=== PATIENT | male | born 1965 | race Caucasian/White ===

== ENCOUNTER 2021-02-19 10:40 | Emergency (ER) | payer OTHER, SELFPAY ==
[2021-02-19 11:15] LABS: Basophils % 1.4 % (0-1.3); Hematocrit 43.7 % (39.6-49.0); Lymphocytes % 25.2 % (15.3-44.8); MPV 7.7 fL (7.6-11.3); RBC Red Blood Cell Count 5.12 M/uL (4.33-5.43)
[2021-02-19 11:21] LABS: Protime INR 1.03
[2021-02-19 11:33] LABS: ALT/SGPT 45 U/L (12-78); AST/SGOT 22 U/L (15-37); Albumin 3.7 g/dL (3.4-5.0); Alkaline Phosphatase 70 U/L (45-117); BUN Blood Urea Nitrogen 14 mg/dL (7-18); Bicarbonate 29 mmol/L (21-32); Bilirubin Direct 0.1 mg/dL (0-0.2); Bilirubin Total 0.5 mg/dL (0.2-1.0); Glucose Level 88 mg/dL (74-106); Protein, Total 7.6 g/dL (6.4-8.2); Sodium Level 139 mmol/L (136-145)
[2021-02-19 11:34] LABS: CKMB Creatine Kinase MB 2.7 ng/mL (1.0-3.6); Creatine Phosphokinase 139 U/L (39-308); Lipase 108 U/L (73-393); Magnesium 2.1 mg/dL (1.8-2.4); Troponin (Emerg Dept Use Only) < 0.02 ng/mL (0.0-0.045)
[2021-02-19 13:46] LABS: Urine Blood Trace-intact (Negative); Urine Glucose Negative (Negative); Urine Protein Negative (Negative)
--- NOTE | 2021-02-19 13:49 | EDPHYS ---
Physician Documentation [facility] Name: Carlin Mckeon Age: 55 yrs Sex: Male : 1965 Arrival Date: 02/19/2021 Time: 10:43 Bed 7 Private MD: Earl Magana ED Physician Delia Torres HPI: 02/19 13:52 This 55 yrs old Male presents to ER via Ambulatory with complaints of High kb Blood Pressure, Weakness, Passed out yesterday. 13:52 The patient has experienced near-syncope, almost passed out. Onset: The kb symptoms/episode began/occurred yesterday. Duration: This was a single episode. Context: the episode(s) was witnessed, by no one, occurred at a parking lot, occurred while the patient was standing, Just prior to the episode the patient experienced no apparent symptoms. Associated injury: The patient did not suffer any apparent associated injury. Associated signs and symptoms: Pertinent positives: dizziness, near syncope, high blood pressure. Current symptoms: Currently, the patient is not experiencing any symptoms, the patient feels back to baseline, no decreased level of consciousness, no confusion, no dysphasia, no headache, no paralysis, no visual changes. The patient has experienced similar episodes in the past, several times, and the symptoms today are exactly the same. The patient has been recently seen by a physician:. Pt reports several episodes of near syncope and dizziness over the past few months. States he was seen by PCP for this, had CT scan and was taken off of a blood pressure medication that they thought was causing it. States he didn't have symptoms for a couple of weeks after stopping the medication, but had an episode yesterday when he walked up to his truck. States he didn't fall. he caught himself on the truck. Reports he looked at his new prescription bottle and noticed that he had taken the bp med that he was reacting to before. Historical: - Allergies: 11:01 Morphine (Anaphylaxis); ss 11:01 Seroquel; rapid heart rate; ss - Home Meds: 11:01 olmesartan 20 mg oral tab 1 tab once daily [Active]; ss - PMHx: 11:01 Hypertension; ss - PSHx: 11:01 hernia repair; ss - Immunization history:: Client reports receiving the 2nd dose of the Covid vaccine. - Social history:: Smoking status: Patient reports the use of cigarette tobacco products, smokes two packs cigarettes per day. ROS: 13:51 Constitutional: Negative for fever, chills, and weight loss. kb 13:51 Neuro: Positive for dizziness, near syncope. 13:51 All other systems are negative. Exam: 13:51 Constitutional: This is a well developed, well nourished patient who is awake, alert, kb and in no acute distress. Head/Face: Normocephalic, atraumatic. Eyes: Pupils equal round and reactive to light, extra-ocular motions intact. Lids and lashes normal. Conjunctiva and sclera are non-icteric and not injected. Cornea within normal limits. Periorbital areas with no swelling, redness, or edema. ENT: Moist Mucous membranes Cardiovascular: Regular rate and rhythm with a normal S1 and S2. No gallops, murmurs, or rubs. No pulse deficits. Respiratory: Respirations even and unlabored. No increased work of breathing, no retractions or nasal flaring. Abdomen/GI: Soft, non-tender. No distention Skin: Warm, dry with normal turgor. Normal color. MS/ Extremity: Pulses equal, no cyanosis. Neurovascular intact. Full, normal range of motion. Neuro: Awake and alert, GCS 15, oriented to person, place, time, and situation. Moves all extremities. Normal gait. Psych: Awake, alert, with orientation to person, place and time. Behavior, mood, and affect are within normal limits. Vital Signs: 10:54 BP 153 / 101; Pulse 84; Resp 18; Temp 98.1(TE); Pulse Ox 99% on R/A; Weight 101.6 kg; ss Height 5 ft. 11 in. (180.34 cm); Pain 0/10; 11:06 BP 142 / 109 Sitting; Pulse 78; Resp 15; Pulse Ox 98% on R/A; jl7 11:07 BP 142 / 99 Supine; Pulse 79; jl7 11:09 BP 121 / 103 Standing; Pulse 77; jl7 11:30 BP 126 / 98; Pulse 75; Resp 15; Pulse Ox 98% ; jl7 12:00 BP 134 / 96; Pulse 65; Resp 15; Pulse Ox 98% ; jl7 12:30 BP 134 / 86; Pulse 65; Resp 15; Pulse Ox 100% ; jl7 13:18 BP 114 / 88; Pulse 63; ss 10:54 Body Mass Index 31.24 (101.60 kg, 180.34 cm) ss NIH Stroke Scale Scores: 11:05 NIHSS Score: 0 jl7 MDM: 11:00 Patient medically screened. kb 13:50 Data reviewed: vital signs, nurses notes. Data reviewed: old medical records, CT brain kb from last month reviewed. Data interpreted: Pulse oximetry: on room air is 98 %. Interpretation: normal. Counseling: I had a detailed discussion with the patient and/or guardian regarding: the historical points, exam findings, and any diagnostic results supporting the discharge/admit diagnosis, lab results, radiology results, the need for outpatient follow up, a family practitioner, to return to the emergency department if symptoms worsen or persist or if there are any questions or concerns that arise at home. 02/19 11:00 Order name: Basic Metabolic Panel; Complete Time: 11:37 kb 02/19 11:00 Order name: CBC with Diff; Complete Time: 11:18 kb 02/19 11:00 Order name: CPK; Complete Time: 11:37 kb 02/19 11:00 Order name: Ckmb; Complete Time: 11:37 kb 02/19 11:00 Order name: Hepatic Function; Complete Time: 11:37 kb 02/19 11:00 Order name: Lipase; Complete Time: 11:37 kb 02/19 11:00 Order name: Magnesium; Complete Time: 11:37 kb 02/19 11:00 Order name: Protime (+inr); Complete Time: 11:37 kb 02/19 11:00 Order name: Ptt, Activated; Complete Time: 11:37 kb 02/19 11:00 Order name: Troponin (emerg Dept Use Only); Complete Time: 11:37 kb 02/19 11:00 Order name: EKG; Complete Time: 11:01 kb 02/19 11:00 Order name: Cardiac monitoring; Complete Time: 11:14 kb 02/19 11:00 Order name: EKG - Nurse/Tech; Complete Time: 11:14 kb 02/19 13:46 Order name: Urine Dipstick-Ancillary; Complete Time: 13:49 EDMS 02/19 11:00 Order name: IV Saline Lock; Complete Time: 11:14 kb 02/19 11:00 Order name: Labs collected and sent; Complete Time: 11:14 kb 02/19 11:00 Order name: NPO; Complete Time: 11:19 kb 02/19 11:00 Order name: O2 Per Protocol; Complete Time: 12:05 kb 02/19 11:00 Order name: O2 Sat Monitoring; Complete Time: 12:05 kb 02/19 11:00 Order name: Urine Dipstick-Ancillary (obtain specimen); Complete Time: 14:01 kb 02/19 11:00 Order name: Orthostatics; Complete Time: 11:14 kb Administered Medications: No medications were administered Disposition Summary: 02/19/21 13:48 Discharge Ordered Location: Home kb Condition: Stable kb Diagnosis - Syncope Near kb - Dizziness and giddiness kb Followup: kb - With: Emergency Department - When: As needed - Reason: Worsening of condition Followup: kb - With: Private Physician - When: 2 - 3 days - Reason: Recheck today's complaints, Continuance of care, Re-evaluation by your physician Discharge Instructions: - Discharge Summary Sheet kb - Near-Syncope, [id number] kb - Dizziness, Koaq-ge-[id number] kb Forms: - Medication Reconciliation Form kb - Thank You Letter kb - Antibiotic Education kb - Prescription Opioid Use kb NIH Stroke Scale - NIH Stroke Score Date: 02/19/2021 Time: 11:05 Total Score = 0 1a. Level of Consciousness (LOC) - 0(Alert) 1b. Level of Consciousness (LOC) (Month \T\ Age) - 0(Both) 1c. LOC Commands (Open \T\ Closes Eyes/Center Maker Hand) - 0(Both) 2. Best Gaze (Lateral Gaze Paresis) - 0(Normal) 3. Visual Field Loss - 0(No visual loss) 4. Facial Palsy - 0(Normal) 5a. Left Arm: Motor (10-second hold) - 0(No drift) 5b. Right Arm: Motor (10-second hold) - 0(No drift) 6a. Left Leg: Motor (5-second hold - always test supine) - 0(No drift) 6b. Right Leg: Motor (5-second hold - always test supine) - 0(No drift) 7. Limb Ataxia (finger/nose \T\ heel/padilla - test with eyes open) - 0(Absent) 8. Sensory Loss (pinprick arms/legs/face) - 0(Normal) 9. Best Language: Aphasia (description/naming/reading) - 0(No aphasia) 10. Dysarthria (speech clarity - read or repeat words) - 0(Normal) 11. Extinction and Inattention (visual/tactile/auditory/spatial/personal) - 0(No abnormality) Initials: jl7 Addendum: 02/23/2021 06:39 Co-signature as Attending Physician, Delia Torres MD. ma2 Signatures: Dispatcher [employer] Aixa Atkins, BORDER GUARD-C BORDER GUARD-Anayeli Woodall RN RN ss Alzahri, Mohammad, MD MD ma2 Corrections: (The following items were deleted from the chart) 02/19 11:02 11:01 PMHx: Hernia; ss ss
--- NOTE | 2021-02-19 13:49 | ER ---
Nurse's Notes [facility] Name: Carlin Mckeon Age: 55 yrs Sex: Male : 1965 Arrival Date: 02/19/2021 Time: 10:43 Bed 7 Private MD: Earl Magana Diagnosis: Syncope Near;Dizziness and giddiness Presentation: 02/19 10:54 Chief complaint: Patient states: Near syncopal episode that occurred out of the blue ss yesterday. Pt states last time this happened he believed he was having an adverse reaction to his blood pressure medication, Olmesartan. Pt didn't realize that his doctor, weeks ago switched his BP medication back to Olmesartan. Pt states that his BP was elevated this morning and he had a headache so he took two doses of his BP medication as well as his 's BP medication, Metoprolol 100 mg. Coronavirus screen: Client denies travel out of the [place] in the last 14 days. Ebola Screen: Patient denies exposure to infectious person. Patient denies travel to an Ebola-affected area in the 21 days before illness onset. 10:54 Method Of Arrival: Ambulatory ss 10:58 Initial Sepsis Screen: Does the patient meet any 2 criteria? No. Patient's initial ss sepsis screen is negative. Does the patient have a suspected source of infection? No. Patient's initial sepsis screen is negative. Risk Assessment: Do you want to hurt yourself or someone else? Patient reports no desire to harm self or others. Onset of symptoms was February 18, 2021. 10:58 Acuity: FRANCISCA 3 ss Historical: - Allergies: 11:01 Morphine (Anaphylaxis); ss 11:01 Seroquel; rapid heart rate; ss - Home Meds: 11:01 olmesartan 20 mg oral tab 1 tab once daily [Active]; ss - PMHx: 11:01 Hypertension; ss - PSHx: 11:01 hernia repair; ss - Immunization history:: Client reports receiving the 2nd dose of the Covid vaccine. - Social history:: Smoking status: Patient reports the use of cigarette tobacco products, smokes two packs cigarettes per day. Screenin:05 Abuse screen: Denies threats or abuse. Denies injuries from another. Nutritional jl7 screening: No deficits noted. Tuberculosis screening: No symptoms or risk factors identified. Fall Risk IV access (20 points). Total Fajardo Fall Scale indicates No Risk (0-24 pts). Assessment: 11:05 General: Appears in no apparent distress. uncomfortable, Behavior is cooperative, jl7 anxious. Pain: Complains of pain in SCHNEIDER Quality of pain is described as throbbing. Neuro: Level of Consciousness is awake, alert, obeys commands, Oriented to person, place, time, situation, Moves all extremities. Full function Gait is steady, Speech is normal, Facial symmetry appears normal. Cardiovascular: Denies chest pain, Patient's skin is warm and dry. Respiratory: Airway is patent Respiratory effort is even, unlabored, Respiratory pattern is regular, symmetrical, Denies shortness of breath. : Reports Difficulty with urination x 2 months. Derm: Skin is pink, warm \T\ dry. Vital Signs: 10:54 BP 153 / 101; Pulse 84; Resp 18; Temp 98.1(TE); Pulse Ox 99% on R/A; Weight 101.6 kg; ss Height 5 ft. 11 in. (180.34 cm); Pain 0/10; 11:06 BP 142 / 109 Sitting; Pulse 78; Resp 15; Pulse Ox 98% on R/A; jl7 11:07 BP 142 / 99 Supine; Pulse 79; jl7 11:09 BP 121 / 103 Standing; Pulse 77; jl7 11:30 BP 126 / 98; Pulse 75; Resp 15; Pulse Ox 98% ; jl7 12:00 BP 134 / 96; Pulse 65; Resp 15; Pulse Ox 98% ; jl7 12:30 BP 134 / 86; Pulse 65; Resp 15; Pulse Ox 100% ; jl7 13:18 BP 114 / 88; Pulse 63; ss 10:54 Body Mass Index 31.24 (101.60 kg, 180.34 cm) NIH Stroke Scale Scores: 11:05 NIHSS Score: 0 jl7 ED Course: 10:43 Patient arrived in ED. mr 10:43 Earl Magana is Private Physician. mr 11:00 [facility]al [facility]C [facility] kb 11:00 Delia Torres MD is Attending Physician. kb 11:01 Triage completed. ss 11:01 Arm band placed on right wrist. ss 11:05 Kevin Turk RN is Primary Nurse. jl7 11:05 Patient has correct armband on for positive identification. Placed in gown. Bed in low jl7 position. Call light in reach. Side rails up X 1. potline monitor on. Pulse ox on. NIBP on. 11:05 EKG done, by ED staff, reviewed by Aixa CHOWDHURY. 7 11:10 Initial lab(s) drawn, by ut, sent to lab. Inserted saline lock: 20 gauge in right kj1 antecubital area, using aseptic technique. Blood collected. 13:30 Urine collected: clean catch specimen, clear. jl7 14:05 No provider procedures requiring assistance completed. IV discontinued, intact, jl7 bleeding controlled, No redness/swelling at site. Pressure dressing applied. Administered Medications: No medications were administered Outcome: 13:48 Discharge ordered by . frederic 14:05 Discharged to home ambulatory. jl7 14:05 Condition: stable 14:05 Discharge instructions given to patient, Instructed on discharge instructions, follow up and referral plans. Demonstrated understanding of instructions, follow-up care. 14:05 Patient left the ED. jl7 NIH Stroke Scale - NIH Stroke Score Date: 02/19/2021 Time: 11:05 Total Score = 0 1a. Level of Consciousness (LOC) - 0(Alert) 1b. Level of Consciousness (LOC) (Month \T\ Age) - 0(Both) 1c. LOC Commands (Open \T\ Closes Eyes/Glass Cut Off Supervisor) - 0(Both) 2. Best Gaze (Lateral Gaze Paresis) - 0(Normal) 3. Visual Field Loss - 0(No visual loss) 4. Facial Palsy - 0(Normal) 5a. Left Arm: Motor (10-second hold) - 0(No drift) 5b. Right Arm: Motor (10-second hold) - 0(No drift) 6a. Left Leg: Motor (5-second hold - always test supine) - 0(No drift) 6b. Right Leg: Motor (5-second hold - always test supine) - 0(No drift) 7. Limb Ataxia (finger/nose \T\ heel/padilla - test with eyes open) - 0(Absent) 8. Sensory Loss (pinprick arms/legs/face) - 0(Normal) 9. Best Language: Aphasia (description/naming/reading) - 0(No aphasia) 10. Dysarthria (speech clarity - read or repeat words) - 0(Normal) 11. Extinction and Inattention (visual/tactile/auditory/spatial/personal) - 0(No abnormality) Initials: dawn7 Signatures: Aixa Grewal, LUCIANA FISHER-Re [place]awnee mr Anayeli Kruger, RN RN ss Kevin Turk RN RN jl7 Kavita Grewal kj1 Corrections: (The following items were deleted from the chart) 11:02 11:01 PMHx: Hernia; ss ss
[2021-02-19 14:28] VITALS: TEMP 98.1
[2021-02-19 14:37] VITALS: O2SAT 100
[2021-02-19 14:38] VITALS: BP 114/88
--- NOTE | 2021-02-20 20:40 | EKG ---
Test Date: 2021-02-19 Test Time: 10:58:04 Assistant Women'S Tennis Coach: LESIA MEASUREMENT RESULTS: Intervals: Rate: 79 OH: 176 QRSD: 92 QT: 376 QTc: 431 [place]: P: 78 OH: 176 QRS: 26 T: 59 INTERPRETIVE STATEMENTS: Normal sinus rhythm Normal ECG Compared to ECG 02/15/2017 12:15:02 No significant changes Electronically Signed On 02-20-21 20:35:21 GARBAGE COLLECTION SUPERVISOR by Raji Menard
--- OUTSIDE RECORDS SUMMARY | 2021-02-21 21:24 | XMS REPORT | Continuity of Care Document ---
:1965 Author Organization [facility] t Address [address] [place] [address] Care Team Providers Name Role Phone Fatmata Beckford Attending Clinician Unavailable EMILY Attending Clinician Unavailable Fatmata Beckford Admitting Clinician Unavailable KNOW Admitting Clinician Unavailable Payers Payer Name Policy Type Policy Number Effective Date Expiration Date S ource Problems This patient has no known problems. Allergies, Adverse Reactions, Alerts This patient has no known allergies or adverse reactions. Medications This patient has no known medications. Procedures This patient has no known procedures. Encounters Start End Encounter Admission Attending Care Care Encounter Source Date/Time Date/Time Type Type Clinicians Facility Department ID 2020-03-13 Inpatient EL Shakeel, [facility] [id number] [facility] 09:00:00 [facility] 2020-03-05 Inpatient EL Shakeel, [facility] [id number] [facility] 09:00:00 Tobi [id number] [facility] 2020-02-22 Inpatient EL Shakeel, [facility] [id number] [facility] 07:30:00 Tobi [id number] [facility] 2020-02-18 Inpatient EL Shakeel, [facility] [id number] [facility] 12:05:00 [facility] 2020-01-24 Inpatient EL Shakeel, [facility] [id number] [facility] 07:30:00 Tobi [id number] [facility] 2020-01-16 Inpatient EL Shakeel, [facility] [id number] [facility] 08:30:00 [facility] l Results Test Description Test Time Test Comments Results Result Comments Source SEDIMENTATION RATE 2016-08-10 21:46:00 Test Item Value Reference Range Interpretation Comme nts SEDIMENTATION RATE, ERYTHROCYTE (BEAKER) (test code = 766) 12 mm/HR 0-20 COMPREHENSIVE METABOLIC [id number] 20:56:00 Test Item Value Reference Range Interpretation Comments TOTAL PROTEIN 7.6 gm/dL 6.0-8.5 (BEAKER) (test code = 770) ALBUMIN (BEAKER) 4.3 g/dL 3.5-5.0 (test code = 1145) ALKALINE PHOSPHATASE 66 U/L 30-115 (BEAKER) (test code = 346) BILIRUBIN TOTAL 0.6 mg/dL 0.1-1.3 (BEAKER) (test code = 377) SODIUM (BEAKER) (test 139 meq/L 135-148 code = 381) POTASSIUM (BEAKER) 3.6 meq/L 3.5-5.5 (test code = 379) CHLORIDE (BEAKER) 107 meq/L 98-106 H (test code = 382) CO2 (BEAKER) (test 18 meq/L 20-31 L code = 355) BLOOD UREA NITROGEN 23 mg/dL 10-26 (BEAKER) (test code = 354) CREATININE (BEAKER) 1.03 mg/dL 0.50-1.20 (test code = 358) GLUCOSE RANDOM 119 mg/dL 70-110 H (BEAKER) (test code = 652) CALCIUM (BEAKER) 9.5 mg/dL 8.5-10.5 (test code = 697) AST (SGOT) (BEAKER) 30 U/L 5-40 (test code = 353) ALT (SGPT) (BEAKER) 31 U/L 6-50 (test code = 347) EGFR (BEAKER) (test 76 mL/min/1.73 ESTIMA KATHI GFR IS code = 1092) sq m NOT ACCURATE CREATININE CLEARANCE IN PREDICTING GLOMERULAR FILTRATION RATE . ESTIMATED GFR I S NOT APPLICABLE FOR DIALYSIS PATIEN TS. CBC W/PLT COUNT & AUTO [id number] 20:30:00 Test Item Value Reference Range Interpretation Comments WHITE BLOOD CELL COUNT (BEAKER) 9.1 K/ L 4.0-10.0 (test code = 775) RED BLOOD CELL COUNT (BEAKER) 5.48 M/ L 4.20-5.80 (test code = 761) HEMOGLOBIN (BEAKER) (test code = 15.7 GM/DL 13.0-16.8 410) HEMATOCRIT (BEAKER) (test code = 47.2 % 40.0-50.0 411) MEAN CORPUSCULAR VOLUME (BEAKER) 86.1 fL 82.0-98.0 (test code = 753) MEAN CORPUSCULAR HEMOGLOBIN 28.6 pg 27.0-33.0 (BEAKER) (test code = 751) MEAN CORPUSCULAR HEMOGLOBIN CONC 33.2 GM/DL 32.0-36.0 (BEAKER) (test code = 752) RED CELL DISTRIBUTION WIDTH 14.3 % 12.0-15.0 (BEAKER) (test code = 412) PLATELET COUNT (BEAKER) (test 255 K/CU MM 150-430 code = 756) MEAN PLATELET VOLUME (BEAKER) 7.8 fL 6.5-10.5 (test code = 754) NUCLEATED RED BLOOD CELLS 0 /100 WBC 0-0 (BEAKER) (test code = 413) NEUTROPHILS RELATIVE PERCENT 62 % (BEAKER) (test code = 429) LYMPHOCYTES RELATIVE PERCENT 29 % (BEAKER) (test code = 430) MONOCYTES RELATIVE PERCENT 6 % (BEAKER) (test code = 431) EOSINOPHILS RELATIVE PERCENT 3 % (BEAKER) (test code = 432) BASOPHILS RELATIVE PERCENT 1 % (BEAKER) (test code = 437) NEUTROPHILS ABSOLUTE COUNT 5.60 K/ L 1.80-8.00 (BEAKER) (test code = 670) LYMPHOCYTES ABSOLUTE COUNT 2.60 K/ L 1.48-4.50 (BEAKER) (test code = 414) MONOCYTES ABSOLUTE COUNT (BEAKER) 0.60 K/ L 0.00-1.30 (test code = 415) EOSINOPHILS ABSOLUTE COUNT 0.20 K/ L 0.00-0.50 (BEAKER) (test code = 416) BASOPHILS ABSOLUTE COUNT (BEAKER) 0.00 K/ L 0.00-0.20 (test code = 417)
== END 2021-02-19 14:05 | disposition home or self-care (01) ==
LOC: ER 10:40
DX: R55 Syncope and collapse (principal); R42 Dizziness and giddiness; Z88.6 Allergy status to analgesic agent; F17.210 Nicotine dependence, cigarettes, uncomplicated; R29.700 NIHSS score 0
CPT/HCPCS: 36415; 80048; 80076; 81003; 82550; 82553; 83690; 83735; 84484; 85025; 85610; 85730; 93005; 99284